=== PATIENT | female | born 1975 | race Caucasian/White ===

== ENCOUNTER 2017-07-22 17:44 | Emergency (ER) | payer OTHER, SELFPAY ==
[2017-07-22] MEDS ORDERED: KETOROLAC 30 MG/ML INJ ONE (18:33)
[2017-07-22] MEDS ORDERED: DIAZEPAM 5 MG TABLET ONE (18:33)
--- NOTE | 2017-07-22 19:29 | RAD REPORT ---
EXAM DESCRIPTION: RAD - Lumbar Spine 3 Views - 07/22/2017 7:22 pm CLINICAL HISTORY: Back pain FINDINGS: The alignment of the lumbar spine is satisfactory. No fracture or dislocation is seen. Schmorl's nodes are present at several levels. The remainder of the exam is unremarkable
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
== END 2017-07-22 20:40 | disposition home or self-care (01) ==
LOC: ER 17:44
DX: M50.80 Other cervical disc disorders, unspecified cervical region (principal); V49.49XA Driver injured in collision with other motor vehicles in traffic accident, initial encounter; Y92.410 Unspecified street and highway as the place of occurrence of the external cause; I10 Essential (primary) hypertension; E11.9 Type 2 diabetes mellitus without complications
CPT/HCPCS: 72100; 96372; 99283